=== PATIENT | male | born 1940 | race Caucasian/White ===

== ENCOUNTER 2023-01-30 05:30 | Observation (INO) ==
[~2023-01-30 05:30] MED LIST: Buffered Lidocaine 1% SYRIN 1 ml INTRADERM ONE; HYDROmorphone 1 MG/1 ML SYRINGE IV PRN; Lactated Ringers 1000 ml BAG 1,000 ML IV SCH; Naloxone 0.4 mg VIAL 0.4 mg/ml 1 ml VIAL IV PRN; Ondansetron 4 mg VIAL 2 MG/ML 2 ml VIAL IV PRN; fentaNYL 100 mcg/2 ml 50 MCG/ML VIAL IV PRN
[2023-01-30] MEDS ORDERED: ceFAZolin 2 GM in NS PREMIX 2 GM/100 ML BAG IVPB ONE (05:48)
[2023-01-30] MEDS ORDERED: Chlorhexidine MOUTHWASH 0.12% 15 ML UDC ONE (05:48)
[2023-01-30 06:29] LABS: Rapid COVID-19 Molecular Undetected (Undetected)
[2023-01-30] MEDS ORDERED: Buffered Lidocaine 1% SYRIN 1 ml INTRADERM ONE (06:30)
[2023-01-30] MEDS ORDERED: Propofol 10 MG/ML 20 ML BTL ONE (06:52)
[2023-01-30] MEDS ORDERED: Lidocaine 2% PF 5 ML VIAL ONE (06:52)
[2023-01-30] MEDS ORDERED: fentaNYL 100 mcg/2 ml 50 MCG/ML VIAL ONE (06:52)
[2023-01-30] MEDS ORDERED: Succinylcholine 200 mg VIAL 20 mg/ml 10 ml VIAL (200 mg) ONE (06:52)
[2023-01-30] MEDS ORDERED: Lidocaine 1% w EPI 1:100,000 MDV 20 ML VIAL ONE (07:00)
[2023-01-30] MEDS ORDERED: ceFAZolin VIAL VIAL ONE (07:01)
[2023-01-30] MEDS ORDERED: Thrombin 5,000 UNITS 1 APPLIC KIT - topical use - TOPICAL ONE (07:01)
[2023-01-30] MEDS ORDERED: Gelfoam Sponge SIZE 100 SPONGE ONE (07:01)
[2023-01-30] MEDS ORDERED: Rocuronium 50 mg VIAL 10 mg/ml 5 ml VIAL (50 mg) ONE ×2 (07:22→08:41)
[2023-01-30] MEDS ORDERED: Metoprolol Tartrate 5 mg VIAL 5 ml VIAL (1 mg/ml) ONE (07:47)
[2023-01-30] MEDS ORDERED: Phenylephrine IV 10 MG/ML 1 ml VIAL ONE (08:07)
[2023-01-30] MEDS ORDERED: Dexamethasone IV 4 MG/ML VIAL 1 ml VIAL ONE (08:35)
[2023-01-30] MEDS ORDERED: Ondansetron 4 mg VIAL 2 MG/ML 2 ml VIAL ONE (08:35)
[2023-01-30] MEDS ORDERED: HYDROmorphone 0.5 MG/0.5 ML SYRINGE ONE (08:41)
[2023-01-30] MEDS ORDERED: Desflurane 240 ML INH ONE (08:57)
[2023-01-30] MEDS ORDERED: Senna TAB 8.6 mg TAB PO PRN (10:01)
[2023-01-30] MEDS ORDERED: Ondansetron 4 mg VIAL 2 MG/ML 2 ml VIAL IV PRN (10:01)
[2023-01-30] MEDS ORDERED: HYDROcodone/ACETAMIN 5/325 mg TAB PO PRN (10:01)
[2023-01-30] MEDS ORDERED: Calcium Carb (TUMS) 500 mg CHEW TAB PO PRN (10:01)
[2023-01-30] MEDS ORDERED: Morphine 2 MG/ML SYRINGE IV PRN (10:01)
[2023-01-30] MEDS ORDERED: Magnesium Hydroxide LIQ 30 ML UDC PO PRN (10:01)
[2023-01-30] MEDS ORDERED: Albuterol HFA INHALER 8 gm MDI INH PRN (10:05)
[2023-01-30] MEDS: Lactated Ringers 1000 ml BAG 1,000 ML IV SCH (13:36)
[2023-01-30] MEDS: HYDROcodone/ACETAMIN 5/325 mg TAB PO PRN ×2 (13:44→23:13)
[2023-01-30] MEDS ORDERED: Insulin GLARGINE 100 un/ml 10 ml VIAL SUBCUT SCH (21:00)
[2023-01-31] MEDS: Lactated Ringers 1000 ml BAG 1,000 ML IV SCH (01:11)
[2023-01-31] MEDS: HYDROcodone/ACETAMIN 5/325 mg TAB PO PRN (06:08)
[2023-01-31 10:17] VITALS: BP 128/83
== END 2023-01-31 12:03 | disposition home or self-care (01) ==
LOC: SSU 05:30 → OR 05:30
PROVIDERS: ADMIT Neurological Surgery; ATTEND Neurological Surgery